=== PATIENT | female | born 1970 | race Caucasian/White ===

== ENCOUNTER → 2016-09-06 | Outpatient (CLI) | payer OTHER | LOC: FIMAGING 08:10 | PROVIDERS: ATTEND Internal Medicine | DX: Z12.31 Encounter for screening mammogram for malignant neoplasm of breast (principal); Z80.3 Family history of malignant neoplasm of breast | CPT/HCPCS: G0202 ==

== ENCOUNTER 2017-02-18 07:37 | Emergency (ER) | payer OTHER ==
[2017-02-18 07:49] VITALS: BP 113/89; PULSE 91; RESP 16; TEMP 98.2; O2SAT 95
--- NOTE | 2017-02-18 08:22 | EDPHY ---
H & P Stated Complaint: left ring finger inj aught in leash with running dog. Time Seen by Provider: 02/18/17 07:43 HPI/ROS: Chief Complaint: Left ring finger injury HPI: 38-year-old woman was walking her dog yesterday when it pulled on her leash. The patient's left hand was caught in the leash and it twisted and extended her left ring finger. She iced yesterday afternoon has had increasing swelling over her proximal interphalangeal joint. She does have her wedding rings on that hand and has been unable to remove them. She is noticed increasing swelling overnight. ROS: 10 point Review of Systems is negative except as noted in the HPI. Physical Exam: General: Awake, alert, no acute distress Left hand: She has significant swelling over her proximal interphalangeal joint of her left ring finger. Rings are in place. There is no erythema. It is mildly tender to touch. She is not holding it flexion. Sensations intact medially and laterally. Capillary refills less than 3 sec. She has no hand tenderness. No other digit tenderness. No wrist injury. Skin: No rash - Personal History LMP (Females 10-55): Now Current Tetanus/Diphtheria Vaccine: Unsure Current Tetanus Diphtheria and Acellular Pertussis (TDAP): Unsure - Medical/Surgical History Hx Asthma: No Hx Chronic Respiratory Disease: No Hx Diabetes: No Hx Cardiac Disease: No Hx Renal Disease: No Hx Cirrhosis: No Hx Alcoholism: No Hx HIV/AIDS: No Hx Splenectomy or Spleen Trauma: No Other PMH: appendectomy. csec x2 - Social History Smoking Status: Never smoked Constitutional: Initial Vital Signs Temperature (C) 36.8 C 02/18/17 07:43 Heart Rate 91 02/18/17 07:43 Respiratory Rate 16 02/18/17 07:43 Blood Pressure 113/89 H 02/18/17 07:43 O2 Sat (%) 95 02/18/17 07:43 O2 Delivery Mode Room Air Allergies/Adverse Reactions: Sulfa (Sulfonamide Antibiotics) Allergy (Verified 02/18/17 07:43) Home Medications: Medication Instructions Recorded Obcp 02/18/17 Medical Decision Making - Diagnostics Imaging Results: Imaging Impressions Finger X-Ray 02/18/17 08:22 Impression: Soft tissue swelling centered at the PIP joint, with no acute fracture observed. ED Course/Re-evaluation: Ring has been removed by the tech. Unfortunately had to be cut. X-ray does not show any obvious fractures. Patient was placed in a volar aluminum foam splint. She has got good perfusion in immobility and is comfortable. I have inspected the splint after application. Patient will refer be referred for follow-up with Hand surgery in about a week if symptoms are not improving. Departure - Departure Disposition: Home, Routine, Self-Care Clinical Impression: Finger sprain Condition: Good Instructions: Finger Sprain (ED) Additional Instructions: Follow up with Hand surgery in about a week if you're still having any pain. You may wear the aluminum foam splint for comfort. Apply ice for 15 min every 2-3 hours while awake. Alternate acetaminophen (1000 mg) with ibuprofen (400 mg) every 4 hours as needed for pain. Referrals: Sherrill Khan MD [Primary Care Provider] - As per Instructions To Olivas MD [Medical Doctor] - As per Instructions
== END 2017-02-18 09:51 | disposition home or self-care (01) ==
LOC: CED 07:37
DX: S63.615A Unspecified sprain of left ring finger, initial encounter (principal); W23.1XXA Caught, crushed, jammed, or pinched between stationary objects, initial encounter; Y99.8 Other external cause status; Y93.K1 Activity, walking an animal
CPT/HCPCS: 73140-PO

== ENCOUNTER → 2017-09-09 | Outpatient (CLI) | payer OTHER | LOC: FIMAGING 13:31 | PROVIDERS: ATTEND Internal Medicine | DX: Z12.31 Encounter for screening mammogram for malignant neoplasm of breast (principal); Z80.3 Family history of malignant neoplasm of breast ==